=== PATIENT | female | born 1955 | race Caucasian/White ===

== ENCOUNTER 2017-07-12 05:20 | Day surgery (SDC) | payer BC ==
[2017-07-11 12:39] VITALS: BMI 41.5
[2017-07-12] MEDS ORDERED: MIDAZOLAM HCL 2 MG/2 ML SINGLE DOSE VIAL ONE (12:24)
[2017-07-12] MEDS ORDERED: PROPOFOL 20 ML ONE (12:24)
[2017-07-12] MEDS ORDERED: LIDOCAINE HCL/PF 2% SDV 5ML VIAL ONE (12:24)
[2017-07-12] MEDS ORDERED: ceFAZolin SODIUM 1 GM VIAL IVPB ONE (12:44)
[2017-07-12] MEDS ORDERED: ceFAZolin SODIUM 1 GM VIAL ONE (12:55)
[2017-07-12] MEDS ORDERED: IBUPROFEN 800 MG/8 ML IJ IVPB PRN (13:20)
[2017-07-12] MEDS ORDERED: ONDANSETRON 4 MG/2 ML VIAL IVPUSH PRN (13:20)
[2017-07-12] MEDS ORDERED: oxyCODONE HCL 5 MG TABLET PO PRN (13:20)
[2017-07-12] MEDS ORDERED: ACETAMINOPHEN 1000 MG/100 ML VIAL (NON FORMULARY) IVPB ONE (13:25)
[2017-07-12] MEDS ORDERED: ACETAMINOPHEN 325 MG TABLET (FP) PO PRN (13:27)
[2017-07-12] MEDS ORDERED: LACTATED RINGERS SOLUTION 1,000 ML IV SCH (13:30)
[2017-07-12] MEDS ORDERED: IBUPROFEN 800 MG/8 ML IJ IVPB ONE ×2 (13:32→13:40)
[2017-07-12] MEDS ORDERED: ACETAMINOPHEN INJECTION 100 ML IVPB ONE (13:33)
[2017-07-12 14:54] VITALS: TEMP 97.6
[2017-07-12 16:40] VITALS: BP 103/67; PULSE 68
--- NOTE | 2017-07-13 12:10 | OP ---
DATE OF OPERATION: 07/12/2017 PREOPERATIVE DIAGNOSIS: Endometrial lesion. POSTOPERATIVE DIAGNOSIS: Endometrial lesion and polyp. SURGEON: Spring Barry MD ANESTHESIA: General by Lashaun Villatoro MD. FINDING UNDER ANESTHESIA: Vagina clean. Cervix closed. Corpus top normal. Fibroid. Adnexa negative. DESCRIPTION OF PROCEDURE: During the procedure, weighted speculum was applied in the vagina. Cervix grasped with tenaculum. Cervical canal was dilated up to number 31 Hegar, and uterine cavity was 9 cm. At this time, hysteroscopy was done with the help of saline media. Entire endometrium and the cervical area were investigated. There were polyps. After hysteroscopy finished, first endocervical was done, and then, with the help of the polyp forceps, the polyp was removed. Endometrial curetting was done. A moderate amount of tissue was removed. Estimated blood loss was 15 mL, and the patient tolerated the procedure, went to the recovery room in good condition. Ashley [id number]
--- NOTE | 2017-07-13 17:03 | PATH ---
Surgical Pathology Report Patient Name: YOVANY REY [facility]. Rec. #: [id number] /Age/Gender: 1955 (Age: 62) / F Account: [id number] Location: [facility] SUR[facility]ICAL Taken: 07/12/2017 Received: 07/12/2017 Reported: 07/13/2017 Physicians: Spring Barry M.D. Specimen(s) Received A: ENDOCERVICAL CURETTINGS B: ENDOMETRIAL CURETTINGS Clinical History Endometrial hyperplasia Final Diagnosis A. ENDOCERVICAL CURETTINGS, DILATATION AND CURETTAGE: SCANT BENIGN FRAGMENTS OF CERVICAL TISSUE IN A BACKGROUND OF MUCOID DEBRIS. B. ENDOMETRIAL CURETTINGS, DILATATION AND CURETTAGE: ENDOMETRIAL POLYP AND BENIGN CERVICAL TISSUE. Electronically Signed Ynes Moran M.D. Gross Description A. Received in formalin labeled "endocervical curettings," is a 1.5 x 1.3 x 0.3 cm aggregate of blood-tinged mucus, possibly containing soft tissue fragments. The formalin is filtered and the specimen is entirely submitted in one cassette. B. Received in formalin labeled "endometrial curettings," is a 1.7 x 0.8 x 0.3 cm pink-cherry polyp. Also received within the same container is a 1.4 x 1.2 x 0.2 cm aggregate of cherry-red soft tissue fragments. The specimen is entirely submitted in one cassette. /07/12/201707/12/2017
== END 2017-07-12 16:44 | disposition home or self-care (01) ==
LOC: JASU-SURG 05:20
PROVIDERS: ATTEND Obstetrics & Gynecology
PROC: 0UB98ZX Excision of Uterus, Via Natural or Artificial Opening Endoscopic, Diagnostic (ICD-10-PCS; principal; 2017-07-12 12:00)
PROC: 0UDB7ZX Extraction of Endometrium, Via Natural or Artificial Opening, Diagnostic (ICD-10-PCS; 2017-07-12 12:00)
DX: N84.0 Polyp of corpus uteri (principal)
CPT/HCPCS: 86850; 86900; 86901; 88305-TC; 94760

== ENCOUNTER 2018-11-11 19:15 | Emergency (ER) | payer BC ==
[2018-11-11 19:19] VITALS: PULSE 67; BMI 42.9
--- NOTE | 2018-11-11 20:28 | PDOC ---
History of Present Illness <Candy Combs - Last Filed: 11/12/18 02:59> - General History Source: Patient Exam Limitations: No Limitations - History of Present Illness Initial Comments: 11/11/18 20:06 Patient is a 63 year old female with pmhx DM, gastroperesis, hypothyroidism, OA , HLD - hypertriglyceridemia, diverticulosis, cholecystectomy c/o abdominal pain in the mid section 2 days. Pain is constant 8/10 which is worse with eating 9/10, sharp, crampy associated with nausea no vomiting. Last BM is 2 days. Patient had the similar symptoms in August 2018 and was prescribed chloradiaazepoxide/clinidium and bentyl, which was prescribed for gastroparesis. States that when she took the pills in August she had relief of symptoms but for the past 2 days has had no relief. Patient has been residing in [place] for the past year and just return to the [facility] 1 week ago. PMD: Dr. Lyon PMHX: as above PSOCHX: neg etoh, drug, cig ALL: cipro GENERAL/CONSTITUTIONAL: No fever or chills. No weakness. No weight change. HEAD, EYES, EARS, NOSE AND THROAT: No change in vision. No ear pain or discharge. No sore throat. CARDIOVASCULAR: No chest pain or shortness of breath. RESPIRATORY: No cough, wheezing, or hemoptysis. GASTROINTESTINAL: (+) nausea, (-) vomiting, diarrhea or constipation. No rectal bleeding. GENITOURINARY: No dysuria, frequency, or change in urination. MUSCULOSKELETAL: No joint or muscle swelling or pain. No neck or back pain. SKIN AND BREASTS: No rash or easy bruising. NEUROLOGIC: No headache, vertigo, loss of consciousness, or loss of sensation. PSYCHIATRIC: No depression or anxiety. ENDOCRINE: No increased thirst. No abnormal weight change. HEMATOLOGIC/LYMPHATIC: No anemia, easy bleeding, or history of blood clots. ALLERGIC/IMMUNOLOGIC: No hives or skin allergy. No latex allergy. GENERAL: The patient is awake, alert, and fully oriented, in moderate distress. HEAD: Normal with no signs of trauma. EYES: Pupils equal, round and reactive to light, extraocular movements intact, sclera anicteric, conjunctiva clear. ENT: Ears normal, nares patent, oropharynx clear without exudates. Moist mucous membranes. NECK: Normal range of motion, supple without lymphadenopathy, JVD, or masses. LUNGS: Breath sounds equal, clear to auscultation bilaterally. No wheezes, and no crackles. HEART: Regular rate and rhythm, normal S1 and S2 without murmur, rub. ABDOMEN: Soft, (+) tenderness to the right upper to mildline, normoactive bowel sounds. No guarding, no rebound. No masses. EXTREMITIES: Normal range of motion, no edema. No clubbing or cyanosis. No cords, erythema, or tenderness. NEUROLOGICAL: Cranial nerves II through XII grossly intact. Normal speech, normal gait. PSYCH: Normal mood, normal affect. SKIN: Warm, Dry, normal turgor, no rashes or lesions noted. <Nicolasa Rosales - Last Filed: 11/12/18 03:09> - General Chief Complaint: Pain Stated Complaint: ABD PAIN Past History <Candy Combs - Last Filed: 11/12/18 02:59> - Past Medical History Anemia: No Asthma: No Cancer: No Cardiac Disorders: No CVA: No COPD: No CHF: No Diabetes: Yes GI Disorders: Yes (Gastroparesis) Disorders: No HTN: Yes Hypercholesterolemia: Yes Liver Disease: No Seizures: No Thyroid Disease: Yes (Hypothyroid) Other medical history: diverticuitis - Surgical History Abdominal Surgery: Yes (herniarepair agter gb sx) Appendectomy: No Cardiac Surgery: No Cholecystectomy: Yes Lung Surgery: No Neurologic Surgery: No Orthopedic Surgery: No (lt knee arthroscopy) - Immunization History Immunization Up to Date: Yes - Suicide/Smoking/Psychosocial Hx Smoking Status: No Smoking History: Former smoker Have you smoked in the past 12 months: No Number of Cigarettes Smoked Daily: 20 If you are a former smoker, when did you quit?: many years ago Information on smoking cessation initiated: No Hx Alcohol Use: No Drug/Substance Use Hx: No Hx Substance Use Treatment: No <Nicolasa Rosales - Last Filed: 11/12/18 03:09> - Past Medical History Allergies/Adverse Reactions: Allergies Allergy/AdvReac Type Severity Reaction Status Date / Time ciprofloxacin HCl Allergy Severe Verified 11/11/18 19:17 [From Cipro] Home Medications: Ambulatory Orders Aspirin [ASA -] 81 mg PO DAILY 02/09/16 Biotin 1 mg PO DAILY 02/09/16 Cholecalciferol (Vitamin D3) [Vitamin D3] 50,000 unit PO WEEKLY 02/09/16 Folic Acid 1 mg PO DAILY 02/09/16 Levothyroxine [Synthroid -] 50 mcg PO DAILY 02/09/16 Paroxetine HCl 10 mg PO BID 02/09/16 Insulin (Novolog 70/30) [Novolog Mix 70/30 Vial -] 25 units SQ DAILY@0700 vial 02/10/16 Losartan Potassium [Cozaar -] 50 mg PO DAILY #30 tablet 02/10/16 Insulin Degludec [Tresiba Flextouch U-100] 30 units SCJ HS 07/11/17 *Physical Exam - Vital Signs Last Vital Signs Temp Pulse Resp BP Pulse Ox 98.1 F 67 18 120/59 L 97 11/11/18 19:18 11/11/18 19:18 11/11/18 19:18 11/11/18 19:18 11/11/18 19:18 <Candy Combs - Last Filed: 11/12/18 02:59> - Vital Signs Last Vital Signs Temp Pulse Resp BP Pulse Ox 98.1 F 67 18 120/59 L 97 11/11/18 19:18 11/11/18 19:18 11/11/18 19:18 11/11/18 19:18 11/11/18 19:18 <Nicolasa Rosales - Last Filed: 11/12/18 03:09> ED Treatment Course - LABORATORY CBC & Chemistry Diagram: 11/11/18 20:45 11/11/18 20:45 - ADDITIONAL ORDERS Additional order review: Laboratory Results 11/11/18 11/11/18 11/11/18 22:17 20:45 20:38 Sodium 140 Potassium 4.3 Chloride 104 Carbon Dioxide 29 Anion Gap 7 L BUN 15 Creatinine 0.7 Creat Clearance w eGFR 84.51 POC Glucometer 81 57 Random Glucose 62 L Calcium 9.6 Total Bilirubin 0.3 AST 21 ALT 21 Alkaline Phosphatase 99 Creatine Kinase 214 H Creatine Kinase Index 1.5 CK-MB (CK-2) 3.4 Troponin I < 0.02 Total Protein 7.2 Albumin 3.6 Total Amylase 35 Lipase 79 11/11/18 11/11/18 11/11/18 22:17 20:45 20:38 RBC 5.08 MCV 84.4 MCHC 32.7 RDW 15.9 H MPV 8.5 Neutrophils % 51.1 D Lymphocytes % 37.7 D Monocytes % 5.8 D Eosinophils % 4.4 D Basophils % 1.0 POC Glucometer 81 57 - Medications Given in the ED: ED Medications Discontinued Medications Generic Name Dose Route Start Last Admin Trade Name Delia PRN Reason Stop Dose Admin Morphine Sulfate 2 mg 11/11/18 20:31 11/11/18 21:37 Morphine Injection - IVPUSH 11/11/18 20:32 2 mg ONCE ONE Administration Ondansetron HCl 4 mg 11/11/18 20:31 11/11/18 21:39 Zofran Injection IVPUSH 11/11/18 20:32 4 mg ONCE ONE Administration Sodium Chloride 1,000 ml 11/11/18 20:31 11/11/18 23:20 Normal Saline - IV 11/11/18 20:32 Not Given ONCE ONE <Candy Combs - Last Filed: 11/12/18 02:59> - LABORATORY CBC & Chemistry Diagram: 11/11/18 20:45 11/11/18 20:45 <Nicolasa Rosales - Last Filed: 11/12/18 03:09> Medical Decision Making - Medical Decision Making 11/12/18 01:48 Patient Name: YOVANY REY THIS IS A PRELIMINARY REPORT FROM [facility] DATE OF SERVICE: 2018-11-12 00:04:22 IMAGES: 525 EXAM: ABDOMEN \T\ PELVIS CT WITH CONTR HISTORY: Right sided abdominal pain and constipation. COMPARISON: None. FINDINGS: Lung bases are clear. The visualized cardiac chambers are normal size and configuration. Status post cholecystectomy without biliary duct dilation. 11 mm left adrenal nodule is nonspecific but possibly an adenoma. Normal liver, pancreas, spleen, right adrenal gland and kidneys. The stomach and abdominal small and large bowel are normal. There is no aortic aneurysm. There is no significant retroperitoneal lymphadenopathy. Diastases recti is noted. The pelvic small and large bowel are notable for mild sigmoid diverticulosis calcified subcutaneous gluteal injection granulomas are noted.. The appendix is normal . The uterus and adnexal structures are normal. Urinary bladder is unremarkable. There is no pelvic free fluid. No discrete pelvic lymphadenopathy is identified. IMPRESSION: No evidence acute pathology. Small nonspecific left adrenal nodule, possibly an adenoma. Mild sigmoid diverticulosis. <Candy Combs - Last Filed: 11/12/18 02:59> - Medical Decision Making 11/11/18 20:06 Patient is a 63 year old female with pmhx DM, gastroperesis, hypothyroidism, OA , HLD - hypertriglyceridemia, diverticulosis, cholecystectomy c/o abdominal pain in the mid section 2 days. Pain is constant 8/10 which is worse with eating 9/10, sharp, crampy associated with nausea no vomiting. Last BM is 2 days. Patient had the similar symptoms in August 2018 and was prescribed chloradiaazepoxide/clinidium and bentyl, which was prescribed for gastroparesis. States that when she took the pills in August she had relief of symptoms but for the past 2 days has had no relief. Patient has been residing in [place] for the past year and just return to the [facility] 1 week ago. DDx: gastroperesis. ischemia, diverticulitis, appendicitis, gastritis, UTI will get lab incl UA Pain meds IVF Patient after assessment c/o feeling that the bs is low FS done is 50, juice given repeat after 1 hours 84 NS IVF held. labs reviewed no acute finding, urine pending ct with no acute finding Will encourage patient to take the bentyl. 11/12/18 02:11 Patient is currently pain-free 11/12/18 03:07 Urine is negative Patient is tolerating by mouth currently pain-free Discharge I discussed the physical exam findings, ancillary test results and final diagnoses with the patient. I answered all of the patient's questions. The patient was satisfied with the care received and felt comfortable with the discharge plan and treatment plan. The Patient agrees to follow up with the primary care physician within 24-72 hours. <Nicolasa Rosales - Last Filed: 11/12/18 03:09> *DC/Admit/Observation/Transfer <Candy Combs - Last Filed: 11/12/18 02:59> <Nicolasa Rosales - Last Filed: 11/12/18 03:09> Diagnosis at time of Disposition: Glycosuria Abdominal pain Qualifiers: Abdominal location: right lower quadrant Qualified Code(s): R10.31 - Right lower quadrant pain - Discharge Dispostion Disposition: HOME Condition at time of disposition: Stable - Patient Instructions Printed Discharge Instructions: Urine Glucose, DI for Abdominal Pain-Adult Additional Instructions: Your Discharge Instructions: You must call primary care physician within 24 hours to arrange follow-up. Return to the Emergency Department with any new, persistent or worsening symptoms, for fever, chills, SOB, dizziness or any other concerning changes that may occur. Continue the Bentyl until seen by PMD.
[2018-11-11] MEDS ORDERED: SODIUM CHLORIDE 0.9% 500 ML INFUS.BAG IV ONE (20:31)
[2018-11-11] MEDS ORDERED: ONDANSETRON 4 MG/2 ML VIAL IVPUSH ONE (20:31)
[2018-11-11] MEDS ORDERED: morphine CARPU-JECT 2 MG/1 ML DISP.SYRIN IVPUSH ONE (20:31)
[2018-11-11 20:56] LABS: EOS % 4.4 % (0-4.5); HEMATOCRIT 42.9 % (32.4-45.2); LYMPH % 37.7 % (8-40); MCH 27.6 pg (25.7-33.7); MCHC 32.7 g/dl (32.0-36.0); MEAN CELL VOLUME 84.4 fl (80-96); MEAN PLT VOLUME 8.5 fl (7.5-11.1); MONO % 5.8 % (3.8-10.2); NEUT % 51.1 % (42.8-82.8); PLATELET COUNT 218 K/MM3 (134-434); RBC 5.08 M/mm3 (3.60-5.2); RDW 15.9 % (11.6-15.6); WHITE BLOOD COUNT 11.5 K/mm3 (4.0-10.0)
[2018-11-11] MEDS ORDERED: morphine SULFATE 4 MG/ML VIAL ONE (21:25)
[2018-11-11] MEDS ORDERED: ONDANSETRON 4 MG/2 ML VIAL ONE (21:25)
[2018-11-11 21:27] LABS: ALBUMIN 3.6 g/dl (3.4-5.0); ALK PHOS 99 U/L (45-117); AMYLASE 35 U/L (25-115); ANION GAP 7 MMOL/L (8-16); BILIRUBIN,TOTAL 0.3 mg/dL (0.2-1); BLOOD UREA NITROGEN 15 mg/dL (7-18); CALCIUM 9.6 mg/dL (8.5-10.1); CHLORIDE 104 mmol/L (98-107); CO2 29 mmol/L (21-32); CREATININE 0.7 mg/dL (0.55-1.3); GLUCOSE,RANDOM 62 mg/dL (74-106); LIPASE 79 U/L (73-393); POTASSIUM 4.3 mmol/L (3.5-5.1); SGOT/AST 21 U/L (15-37); SGPT/ALT 21 U/L (13-61); SODIUM 140 mmol/L (136-145); TOT PROT 7.2 g/dl (6.4-8.2)
[2018-11-12] MEDS ORDERED: DEXTROSE 5%-0.45% SALINE 1,000 ML IV SCH (02:00)
[2018-11-12 02:38] LABS: URINE APPEARANCE CLEAR; URINE COLOR YELLOW
[2018-11-12 02:39] LABS: PH,URINE 5.5 (5.0-8.0); URINE BILIRUBIN NEGATIVE (NEGATIVE); URINE KETONE NEGATIVE (NEGATIVE); URINE LEUK ESTERASE 0 (NEGATIVE); URINE NITRITE NEGATIVE (NEGATIVE); URINE PROTEIN 0 (NEGATIVE); URINE UROBILINOGEN 0.2 mg/dL (0.2-1.0)
[2018-11-12 02:43] VITALS: BP 101/46; TEMP 97.4
--- NOTE | 2018-11-12 09:49 | EKG ---
Test Reason : Blood Pressure : / mmHG Vent. Rate : 061 BPM Atrial Rate : 061 BPM P-R Int : 178 ms QRS Dur : 084 ms QT Int : 470 ms P-R-T Axes : 057 009 046 degrees QTc Int : 473 ms NORMAL SINUS RHYTHM POSSIBLE LEFT ATRIAL ENLARGEMENT BORDERLINE ECG WHEN COMPARED WITH ECG OF 27-JUN-2017 09:49, NO SIGNIFICANT CHANGE WAS FOUND Confirmed by MINERVA ALY MD ([id number]) on 11/12/2018 9:49:09 AM Referred By: Confirmed By:MINERVA ALY MD
== END 2018-11-12 03:22 | disposition home or self-care (01) ==
LOC: JER 19:15
PROC: 3E033NZ Introduction of Analgesics, Hypnotics, Sedatives into Peripheral Vein, Percutaneous Approach (ICD-10-PCS; principal; 2018-11-11)
PROC: 3E033GC Introduction of Other Therapeutic Substance into Peripheral Vein, Percutaneous Approach (ICD-10-PCS; 2018-11-11)
DX: R81 Glycosuria (principal); R10.31 Right lower quadrant pain; E11.9 Type 2 diabetes mellitus without complications; K31.84 Gastroparesis; E03.9 Hypothyroidism, unspecified; E78.5 Hyperlipidemia, unspecified; M19.90 Unspecified osteoarthritis, unspecified site; Z79.4 Long term (current) use of insulin
CPT/HCPCS: 36415; 74177-TC; 80053; 81003; 82150; 82550; 82553; 82962; 83690; 84484; 85025; 93005; 93010; 99282-25

== ENCOUNTER 2018-11-30 10:14 | Emergency (ER) | payer BC ==
[2018-11-30 10:24] VITALS: BP 107/50; PULSE 65; TEMP 97.7; BMI 41.1
--- NOTE | 2018-11-30 10:50 | PDOC ---
History of Present Illness - General Chief Complaint: Pain Stated Complaint: ABD.PAIN/ LOWER BACK PAIN Time Seen by Provider: 11/30/18 10:50 History Source: Patient, Spouse Exam Limitations: No Limitations - History of Present Illness Initial Comments: 11/30/18 11:46 Patient is a 63 year old female with history of diabetes mellitus (insulin dependent), diverticulosis, gastritis, gastroparesis, endometriosis, hypothryroidism, osteoarthritis, hyperlipidemia presents with complaint of abdominal pain. Patient endorses chronic pain ongoing for past 4-5 months. Pain is described as dull, pressure like, that lasts approx. 4 hours, before spontaneously remitting. Pain is worsened in the evening when lying down flat on bed, ocassionally improved with food. Patient endorses diet of chicken soup, fruits, and oatmeal. She endorses nausea, however denies vomiting. Last bowel movement was yesterday; firm, without melena, or hematochezia. She denies sick contacts. Denies subjective fevers, chills, shortness of breath, cough, chest pain, palpitations. Patient has had numerous CT scans of her abdomen (most recent 11/12) which showed mild sigmoid diverticulosis. Colonoscopy: 2017 ( [facility]) revealed left sided diverticulosis and internal hemorrhoids. 1.2 cm ascending colon polyp noted. Endoscopy: 2018 revealed acute, mild gastritis without bleeding. Negative for H. pylori, or metaplasia. PMH: diabetes mellitus, diverticulosis, gastritis, gastroparesis, endometriosis , hypothryroidism, osteoarthritis, hyperlipidemia PSH: cholecystectomy, left knee repair Family history Mother: history of colon cancer Father Social: Patient lives with her . Former smoker (smoked 1 pack per day for 15 years; quit smoking 15 years ago). Denies alcohol use. Denies illicit drug use. 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 Past History - Travel Traveled outside of the country in the last 30 days: No Close contact w/someone who was outside of country & ill: No - Past Medical History Allergies/Adverse Reactions: Allergies Allergy/AdvReac Type Severity Reaction Status Date / Time ciprofloxacin HCl Allergy Severe [facility]18 10:24 [facility] Home Medications: Ambulatory Orders Aspirin [ASA -] 81 mg PO DAILY 02/09/16 Biotin 1 mg PO DAILY 02/09/16 Folic Acid 1 mg PO DAILY 02/09/16 Levothyroxine [Synthroid -] 50 mcg PO DAILY 02/09/16 Dicyclomine HCl [Bentyl -] 20 mg PO Q6H PRN 11/30/18 Empagliflozin [Jardiance] 10 mg PO DAILY 11/30/18 Famotidine [Pepcid] 40 mg PO DAILY 11/30/18 Fluoxetine HCl [Prozac -] 20 mg PO DAILY 11/30/18 Insulin Lispro Protamin/Lispro [Humalog Mix 50-50 Kwikpen] 35 unit SQ ASDIR 05/11 Linaclotide [Linzess] 145 mcg PO DAILY 11/30/18 Losartan Potassium [Cozaar -] 25 mg PO DAILY 11/30/18 Melatonin/Tryptophan [Restone Capsule] 1 each PO DAILY 11/30/18 Anemia: No Asthma: No Cancer: No Cardiac Disorders: No CVA: No COPD: No CHF: No Diabetes: Yes GI Disorders: Yes (Gastroparesis, gastritis, diverticulosis) Disorders: Yes (endometriosis) HTN: Yes Hypercholesterolemia: Yes Liver Disease: No Seizures: No Thyroid Disease: Yes (Hypothyroid) - Surgical History Abdominal Surgery: Yes (herniarepair agter gb sx) Appendectomy: No Cardiac Surgery: No Cholecystectomy: Yes Lung Surgery: No Neurologic Surgery: No Orthopedic Surgery: No (lt knee arthroscopy) - Immunization History Immunization Up to Date: Yes - Suicide/Smoking/Psychosocial Hx Smoking Status: No Smoking History: Never smoked Have you smoked in the past 12 months: No Number of Cigarettes Smoked Daily: 20 If you are a former smoker, when did you quit?: many years ago Information on smoking cessation initiated: No Hx Alcohol Use: No Drug/Substance Use Hx: No Hx Substance Use Treatment: No Review of Systems - Review of Systems Able to Perform ROS?: Yes Constitutional: No: Chills, Diaphoresis, Fever, Malaise, Night Sweats, Unintentional Wgt. Loss HEENTM: No: Blurred Vision, Nose Congestion, Throat Pain, Throat Swelling, Difficulty Swallowing Respiratory: No: Cough, Orthopnea, Shortness of Breath, Stridor, Wheezing, Hemoptysis Cardiac (ROS): No: Chest Pain, Irregular Heart Rate, Lightheadedness, Palpitations, Syncope ABD/GI: Yes: Constipated, Nausea. No: Blood Streaked Bowels, Diarrhea, Rectal Bleeding, Vomiting, Tarry Stools : No: Burning, Dysuria, Discharge, Hematuria, Urgency Neurological: No: Headache, Numbness, Paresthesia, Weakness *Physical Exam - Vital Signs Last Vital Signs Temp Pulse Resp BP Pulse Ox 97.7 F 65 18 107/50 L 96 11/30/18 10:21 11/30/18 10:21 11/30/18 10:21 11/30/18 10:21 11/30/18 10:21 - Physical Exam General Appearance: Yes: Appropriately Dressed, Obese. No: Apparent Distress HEENT: positive: EOMI, SIMEON. negative: Scleral Icterus (R), Scleral Icterus (L) , Tonsillar Exudate, Rhinorrhea Neck: positive: Trachea midline, Supple. negative: Lymphadenopathy (R), Lymphadenopathy (L) Respiratory/Chest: positive: Lungs Clear, Normal Breath Sounds. negative: Respiratory Distress, Accessory Muscle Use, Crackles, Rales, Rhonchi, Stridor, Wheezing Cardiovascular: positive: Regular Rhythm, Regular Rate, S1, S2. negative: Murmur, Tachycardia Gastrointestinal/Abdominal: positive: Soft, Tenderness (tender to deep palpation left upper and lower quadrants), Other (obese abdomen). negative: Guarding, Rebound Extremity: positive: Normal Range of Motion. negative: Swelling, Calf Tenderness Integumentary: positive: Dry, Warm. 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 Recent EGD reveals gastritis. Colonoscopy last year significant for diverticulosis. CT scan performed two weeks ago shows sigmoid diverticulosis without diverticulitis. Will repeat CBC, CMP 1 liter normal saline hydration Reglan 15mg IV Benadryl 25mg PO Ofirmev 1000mg IV Will reassess 11/30/18 13:24 CBC, CMP, UA unrevealing. No acute change from prior study. Patient endorses significant improvement of her abdominal pain. She is tolerating oral intake. Will discharge home, with outpatient GI ,and OBGYN follow up. *DC/Admit/Observation/Transfer Diagnosis at time of Disposition: Abdominal pain - Discharge Dispostion Disposition: HOME Condition at time of disposition: Improved Decision to Admit order: No - Referrals Referrals: Angel Zuniga MD [Primary Care Provider] - Jose E Erickson DO [Staff Physician] - Isabella Powers MD [Staff Physician] - - Patient Instructions Printed Discharge Instructions: DI for Abdominal Pain-Adult Additional Instructions: You were seen in the hospital for abdominal pain. Your blood work is unchanged from prior visits, and is not concerning for acute infection. Your colonoscopy, endoscopy, and CT scan records were reviewed. You were treated with IV fluids, and medication for your nausea and pain. You are being discharged home. Continue taking your home medications as directed. We recommend that you follow up with your primary care physician within one - two days after discharge. 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 Follow up with your OBGYN within one week of discharge. Return to the nearest emergency department if you experience subjective fevers, chills, shortness of breath, chest pain, palpitations, worsening abdominal pain , nausea, vomiting, blood with vomiting, or blood with bowel movements, black tarry bowel movements, fall, any trama, loss of consciousness. - Post Discharge Activity
[2018-11-30] MEDS ORDERED: METOCLOPRAMIDE HCL INJECTION 10 MG/2 ML VIAL IVPUSH ONE (11:45)
[2018-11-30] MEDS ORDERED: ACETAMINOPHEN 1000 MG/100 ML VIAL (NON FORMULARY) IVPB ONE (11:45)
[2018-11-30] MEDS ORDERED: diphenhydrAMINE HCL 25 MG CAPSULE (FP) PO ONE (11:45)
[2018-11-30] MEDS ORDERED: SODIUM CHLORIDE 1,000 ML IV STA (11:45)
[2018-11-30] MEDS ORDERED: ACETAMINOPHEN INJECTION 100 ML IVPB ONE (11:48)
[2018-11-30] MEDS ORDERED: METOCLOPRAMIDE HCL INJECTION 10 MG/2 ML VIAL ONE (11:48)
[2018-11-30 12:20] LABS: URINE APPEARANCE CLEAR; URINE BILIRUBIN NEGATIVE (NEGATIVE); URINE COLOR YELLOW; URINE GLUCOSE (UA) 3+ (NEGATIVE); URINE KETONE NEGATIVE (NEGATIVE); URINE LEUK ESTERASE NEGATIVE (NEGATIVE); URINE NITRITE NEGATIVE (NEGATIVE); URINE PROTEIN NEGATIVE (NEGATIVE); URINE UROBILINOGEN 0.2 mg/dL (0.2-1.0)
[2018-11-30 12:34] LABS: HEMATOCRIT 45.2 % (32.4-45.2); HEMOGLOBIN 14.6 GM/dL (10.7-15.3); MCH 27.3 pg (25.7-33.7); MCHC 32.3 g/dl (32.0-36.0); MEAN CELL VOLUME 84.6 fl (80-96); MEAN PLT VOLUME 8.7 fl (7.5-11.1); PLATELET COUNT 219 K/MM3 (134-434); RBC 5.34 M/mm3 (3.60-5.2); WHITE BLOOD COUNT 8.1 K/mm3 (4.0-10.0)
--- NOTE | 2018-11-30 12:46 | PDOC ---
Documentation entered by Roberto Galloway SCRIBE, acting as scribe for Armen Levy MD. Armen Levy MD: This documentation has been prepared by the Laverne lindo Nirvannie, SCRIBE, under my direction and personally reviewed by me in its entirety. I confirm that the documentation accurately reflects all work, treatment, procedures, and medical decision making performed by me. Attending Attestation - Resident Resident Name: Andrés Doss - ED Attending Attestation I have performed the following: I have examined & evaluated the patient, The case was reviewed & discussed with the resident, I agree w/resident's findings & plan - HPI HPI: 11/30/18 11:43 CC: Abdominal pain. HPI: The patient is a 63 year old female, with a significant past medical history of DM, gastroparesis, hypothyroidism, OA, HLD, diverticulosis, and endometriosis, who presents to the emergency department with, dull, pressure-like, constant, 7/ 10 LLQ abdominal pain with associated nausea worsened while lying down. Patient notes her symptoms are similar to her chronic abdominal pain and notes an appointment with GI 12/2018. She denies recent fevers, chills, headache or dizziness. She denies recent vomit , diarrhea or constipation. She denies recent dysuria, frequency, urgency or hematuria. She denies recent chest pain or shortness of breath. Allergies: Ciprofloxacin. Past surgical history: None reported. Social history: Nonsmoker. Denies EtOH use and recreational drug use. Primary Care Physician: Dr. Zuniga - Physicial Exam PE: 11/30/18 12:21 Exam: Vitals: Triage Vital signs reviewed General Appearance: no acute distress, well nourished well developed, Head: Atraumatic, normocephalic Neck: Supple. Chest Wall: Nontender Abdomen: +Mild left sided abdominal discomfort. No rebound, no guarding. Soft, nondistended. Rectal: Exam deferred Extremities: Full range of motion to all extremities, no cyanosis, clubbing, or edema Skin: Warm and dry, no rashes or lesions, no petechiae Neuro: AOX3; Cranial Nerves 2-12 grossly intact, gait normal Psych: normal mood, normal affect - Medical Decision Making 11/30/18 11:44 63 year old female, with a significant past medical history of DM, gastroparesis , hypothyroidism, OA, HLD, diverticulosis, and endometriosis, who presents to the emergency department with left sided abdominal pain. 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 Findings, the need for follow-up and strict return instructions discussed with patient.
[2018-11-30 13:15] LABS: ALBUMIN 3.4 g/dl (3.4-5.0); BILIRUBIN,TOTAL 0.4 mg/dL (0.2-1); CALCIUM 9.5 mg/dL (8.5-10.1); CREATININE 0.6 mg/dL (0.55-1.3); POTASSIUM 4.2 mmol/L (3.5-5.1); TOT PROT 7.1 g/dl (6.4-8.2)
== END 2018-11-30 13:41 | disposition home or self-care (01) ==
LOC: JER 10:14
PROC: 3E033NZ Introduction of Analgesics, Hypnotics, Sedatives into Peripheral Vein, Percutaneous Approach (ICD-10-PCS; principal; 2018-11-30)
PROC: 3E033GC Introduction of Other Therapeutic Substance into Peripheral Vein, Percutaneous Approach (ICD-10-PCS; 2018-11-30)
DX: R10.84 Generalized abdominal pain (principal); I10 Essential (primary) hypertension; E78.00 Pure hypercholesterolemia, unspecified; E03.9 Hypothyroidism, unspecified; E11.9 Type 2 diabetes mellitus without complications; Z79.4 Long term (current) use of insulin; Z87.19 Personal history of other diseases of the digestive system
CPT/HCPCS: 36415; 80053; 81003; 85027; 87086; 99282-25; J0131; J7030

== ENCOUNTER 2019-03-14 23:16 | Observation (INO) | payer BC ==
[2019-03-14 23:38] VITALS: BMI 41.1
--- NOTE | 2019-03-14 23:56 | PDOC ---
History of Present Illness - General Chief Complaint: Chest Pain Stated Complaint: CHEST PAIN Time Seen by Provider: 03/14/19 23:56 History Source: Patient, Family (adult nephew at bedside) Exam Limitations: No Limitations - History of Present Illness Initial Comments: 03/15/19 01:04 63F w/ pmh of HTN, HLD, hypothyroidism, asthma, NIDDM, gastroparesis, gastritis , endometriosis, diverticulosis presents with complaint of sudden onset midsternal chest pain(8/10 severity) w/a SOB, chest tightness, posterior FAITH. 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 Pain improved somewhat in ER w/o intervention. Last week, received amoxicillin for sore throat. Denies h/o of [place], CVA. 3mo prior and patient endorses intermittent episodes of anxiety and panic attacks since then. Has loss ~20lbs since her . Takes inhaler as needed, ~x2/ weekly. Associated Symptoms: reports: chest pain, shortness of breath. denies: diaphoresis, loss of appetite, syncope Past History - Travel Traveled outside of the country in the last 30 days: No Close contact w/someone who was outside of country & ill: No - Past Medical History Allergies/Adverse Reactions: Allergies Allergy/AdvReac Type Severity Reaction Status Date / Time ciprofloxacin HCl Allergy Severe Verified 03/14/19 23:32 [From Cipro] Home Medications: Ambulatory Orders Aspirin [ASA -] 81 mg PO DAILY 02/09/16 Folic Acid 1 mg PO DAILY 02/09/16 Levothyroxine [Synthroid -] 50 mcg PO DAILY 02/09/16 Dicyclomine HCl [Bentyl -] 20 mg PO Q6H PRN 11/30/18 Empagliflozin [Jardiance] 10 mg PO DAILY 11/30/18 Famotidine [Pepcid] 40 mg PO DAILY 11/30/18 Insulin Lispro Protamin/Lispro [Humalog Mix 50-50 Kwikpen] 35 unit SQ ASDIR 05/11 Linaclotide [Linzess] 145 mcg PO DAILY 11/30/18 Losartan Potassium [Cozaar -] 25 mg PO DAILY 11/30/18 Dicyclomine HCl [Bentyl -] 20 mg PO ONCE 03/15/19 Anemia: No Asthma: No Cancer: No Cardiac Disorders: No CVA: No COPD: No CHF: No Diabetes: Yes GI Disorders: Yes (Gastroparesis, gastritis, diverticulosis) Disorders: Yes (endometriosis) HTN: Yes Hypercholesterolemia: Yes Liver Disease: No Seizures: No Thyroid Disease: Yes (Hypothyroid) - Surgical History Abdominal Surgery: Yes (incisional hernia repair, lap bernice) Appendectomy: No Cardiac Surgery: No Cholecystectomy: Yes Lung Surgery: No Neurologic Surgery: No Orthopedic Surgery: No (lt knee arthroscopy) - Family Disease History Family Disease History: Diabetes: Mother (hypothyroidism), Sister, CA: Father ( lung cancer), Other: Mother - Immunization History Immunization Up to Date: Yes - Suicide/Smoking/Psychosocial Hx Smoking Status: No Smoking History: Former smoker (last smoked 15ys prior) Have you smoked in the past 12 months: No Number of Cigarettes Smoked Daily: 20 If you are a former smoker, when did you quit?: many years ago Information on smoking cessation initiated: No Hx Alcohol Use: No Drug/Substance Use Hx: No Hx Substance Use Treatment: No Review of Systems - Review of Systems Able to Perform ROS?: Yes Is the patient limited Ukrainian proficient: Yes Constitutional: Yes: Unexplained wgt Loss. No: Chills, Fever, Malaise HEENTM: Yes: Difficulty Swallowing. No: Recent change in vision, Double Vision Respiratory: No: Cough, SOB at Rest, Wheezing Cardiac (ROS): Yes: Chest Pain, Palpitations, Chest Tightness. No: Irregular Heart Rate ABD/GI: Yes: Constipated. No: Diarrhea, Nausea, Vomiting : No: Burning, Dysuria Musculoskeletal: No: Back Pain Neurological: Yes: Headache (posterior). No: Seizure, Tremors *Physical Exam - Vital Signs Last Vital Signs Temp Pulse Resp BP Pulse Ox 98.1 F 73 22 H 116/62 100 03/14/19 23:29 03/14/19 23:29 03/14/19 23:29 03/14/19 23:29 03/14/19 23:29 - Physical Exam General Appearance: Yes: Nourished, Obese. No: Apparent Distress HEENT: negative: Pale Conjunctivae, Scleral Icterus (R), Scleral Icterus (L) Neck: negative: Lymphadenopathy (R), Lymphadenopathy (L), Rigidity Respiratory/Chest: positive: Chest Tender (mild TTP of Right parasternal margin) , Wheezing (mild b/l end expiratory wheezes). negative: Lungs Clear, Respiratory Distress, Labored Respiration, Rapid RR Cardiovascular: positive: Regular Rhythm, Regular Rate, S1, S2 Gastrointestinal/Abdominal: positive: Soft, Tenderness (mild epigastric tenderness with deep palpation) Extremity: positive: Normal Inspection. negative: Coldness Integumentary: positive: Dry, Warm Neurologic: positive: Fully Oriented, Alert Heart Score/ECG Review - History History: Moderately suspicious - Electrocardiogram EKG: Normal - Age Age: 45-65 - Risk Factors Risk Factors Heart Score: Yes Hx Hypercholesterolemia, Yes Hx Hypertension, Yes Hx Diabetes Based on the list above the patient has:: >/=3 risk factors or Hx atherosclerotic disease - Troponin Troponin: </= normal limit - Score Heart Score - Total: 4 - ECG Intrepretation Rhythm: Regular Rhythm - [place]: Normal ED Treatment Course - LABORATORY CBC & Chemistry Diagram: 03/15/19 01:09 03/15/19 01:09 Medical Decision Making - Medical Decision Making 03/15/19 01:56 - fu CBC, CMP, tropnonin, CXR - EKG: no ST changes 03/15/19 02:26 - Glu 184, Troponin <0.02 - decision to admit for Chest Pain and HEART 4 03/15/19 02:58 - signed out to ANTONIO Aj *DC/Admit/Observation/Transfer Diagnosis at time of Disposition: Chest pain Qualifiers: Chest pain type: unspecified Qualified Code(s): R07.9 - Chest pain, unspecified - Discharge Dispostion Condition at time of disposition: Stable Decision to Admit order: Yes - Referrals - Patient Instructions - Post Discharge Activity
[2019-03-15 01:45] LABS: BASO % 0.7 % (0-2.0); EOS % 4.9 % (0-4.5); HEMATOCRIT 41.5 % (32.4-45.2); HEMOGLOBIN 13.5 GM/dL (10.7-15.3); LYMPH % 36.4 % (8-40); MCH 27.5 pg (25.7-33.7); MCHC 32.5 g/dl (32.0-36.0); MEAN CELL VOLUME 84.7 fl (80-96); MEAN PLT VOLUME 8.6 fl (7.5-11.1); MONO % 5.2 % (3.8-10.2); NEUT % 52.8 % (42.8-82.8); PLATELET COUNT 203 K/MM3 (134-434); RBC 4.89 M/mm3 (3.60-5.2); RDW 15.6 % (11.6-15.6); WHITE BLOOD COUNT 10.4 K/mm3 (4.0-10.0)
[2019-03-15 02:07] LABS: ALBUMIN 3.4 g/dl (3.4-5.0); BILIRUBIN,TOTAL 0.3 mg/dL (0.2-1); BLOOD UREA NITROGEN 23.2 mg/dL (7-18); CALCIUM 9.2 mg/dL (8.5-10.1); CREATININE 0.8 mg/dL (0.55-1.3); POTASSIUM 4.4 mmol/L (3.5-5.1)
--- NOTE | 2019-03-15 03:03 | PDOC ---
Documentation entered by Supriya Bynum SCRIBE, acting as scribe for Georgi Petty MD. Georgi Petty MD: This documentation has been prepared by the belgica, Supriya Bynum SCRIBE, under my direction and personally reviewed by me in its entirety. I confirm that the documentation accurately reflects all work, treatment, procedures, and medical decision making performed by me. 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 The patient reports she was laying down when the chest pain presented, that's associated with palpitations, posterior headache, and shortness of breath. Denies pain radiation to the extremities. - Physicial Exam PE: 03/15/19 03:05 Agree with exam as documented by resident - Medical Decision Making 03/15/19 05:55 63F with risk factors c/o central, resting chest pain a/w sob, palpitations f/u labs, cxr, ekg high risk chest pain admit for acs r/o
--- NOTE | 2019-03-15 03:04 | HP ---
Admitting History and Physical - Primary Care Physician PCP: Angel Zuniga - Admission Chief Complaint: Chest Pain, SOB, Abdominal Pain, Constipation History of Present Illness: This is a 63 y/o woman with a PMHx of HTN, HLD, DM, Asthma, Hypothyroidism, Gastroparesis, Diverticulosis. Who presents to the ED with midsternal chest pain /pressure with radiation to lumbar, and SOB that occurred while at rest. Patient reports feeling very anxious and sad since the of her almost 3 months ago. Patient reports having chronic abdominal pain, poor appetite with constipation x 2-3 days. She reports taking Linzess today with little relief. Patient reports her last Colonoscopy was 2-3 yrs ago with polyps. Patient denies fever, chills, cough, dizziness, FAITH, palpitations, vomiting, hematochezia, melena, dysuria History Source: Patient Limitations to Obtaining History: No Limitations - Past Medical History Cardiovascular: Yes: HTN, Hyperlipdemia Gastrointestinal: Yes: Constipation, Diverticulosis, Other (gastroparesis). No : Hiatal Hernia Reproductive: Yes: Postmenopausal Endocrine: Yes: Diabetes Mellitus, Hypothyroidism - Past Surgical History Past Surgical History: Yes: Arthrosocopy (left knee ), Cholecystectomy (> 10 years ago) - Smoking History Smoking history: Former smoker (last smoked 15ys prior) Have you smoked in the past 12 months: No Aproximately how many cigarettes per day: 20 If you are a former smoker, when did you quit?: many years ago - Alcohol/Substance Use Hx Alcohol Use: No History of Substance Use: reports: None - Social History Usual Living Arrangement: Yes: Alone ADL: Independent History of Recent Travel: No Home Medications - Allergies Allergies/Adverse Reactions: Allergies Allergy/AdvReac Type Severity Reaction Status Date / Time ciprofloxacin HCl Allergy Severe Verified 03/14/19 23:32 [From Cipro] - Home Medications Home Medications: Ambulatory Orders Aspirin [ASA -] 81 mg PO DAILY 02/09/16 Folic Acid 1 mg PO DAILY 02/09/16 Levothyroxine [Synthroid -] 50 mcg PO DAILY 02/09/16 Dicyclomine HCl [Bentyl -] 20 mg PO Q6H PRN 11/30/18 Empagliflozin [Jardiance] 10 mg PO DAILY 11/30/18 Famotidine [Pepcid] 40 mg PO DAILY 11/30/18 Insulin Lispro Protamin/Lispro [Humalog Mix 50-50 Kwikpen] 35 unit SQ ASDIR 05/11 Linaclotide [Linzess] 145 mcg PO DAILY 11/30/18 Losartan Potassium [Cozaar -] 25 mg PO DAILY 11/30/18 Dicyclomine HCl [Bentyl -] 20 mg PO ONCE 03/15/19 Family Disease History - Family Disease History Family Disease History: Heart Disease: Father (CAD), Mother (CAD), Brother (CABG ), Sister (CAD) Review of Systems - Review of Systems Constitutional: reports: Loss of Appetite Eyes: reports: No Symptoms HENT: reports: No Symptoms Neck: reports: No Symptoms Cardiovascular: reports: Chest Pain, Shortness of Breath Respiratory: reports: SOB Gastrointestinal: reports: Abdominal Pain, Constipation, Nausea Genitourinary: reports: No Symptoms Breasts: reports: No Symptoms Reported Musculoskeletal: reports: No Symptoms Integumentary: reports: No Symptoms Neurological: reports: No Symptoms Endocrine: reports: No Symptoms Hematology/Lymphatic: reports: No Symptoms Psychiatric: reports: Anxiety, Depression Pain Intensity: 4 Physical Examination Vital Signs: Vital Signs Temperature 98.1 F 03/14/19 23:29 Pulse Rate 75 03/15/19 00:40 Respiratory Rate 15 03/15/19 00:40 Blood Pressure 143/67 03/15/19 00:40 O2 Sat by Pulse Oximetry (%) 100 03/15/19 00:40 Constitutional: Yes: Anxious, Mild Distress, Obese Eyes: Yes: WNL, Conjunctiva Clear, EOM Intact, PERRL HENT: Yes: WNL, Atraumatic, Normocephalic Neck: Yes: WNL, Supple, Trachea Midline Cardiovascular: Yes: WNL, Regular Rate and Rhythm, S1, S2 Respiratory: Yes: WNL, Regular, CTA Bilaterally Gastrointestinal: Yes: Soft, Abdomen, Obese, Hypoactive Bowel Sounds, Tenderness , Tenderness, Epigastrium ...Rectal Exam: Yes: Guaiac Negative, Sphincter Tone Normal, Other (stool felt in vault) Renal/: Yes: WNL Breast(s): Yes: WNL Musculoskeletal: Yes: WNL Extremities: Yes: WNL Edema: No Peripheral Pulses WNL: Yes Neurological: Yes: WNL, Alert, Oriented, Cran Nerves II-XII Intact ...Motor Strength: WNL Psychiatric: Yes: WNL, Alert, Oriented Labs: CBC, BMP 03/15/19 01:09 03/15/19 01:09 Laboratory Results - last 24 hr 03/15/19 03/15/19 03/15/19 01:09 01:09 01:09 WBC 10.4 H RBC 4.89 Hgb 13.5 Hct 41.5 MCV 84.7 MCH 27.5 MCHC 32.5 RDW 15.6 Plt Count 203 MPV 8.6 Absolute Neuts (auto) 5.5 Neutrophils % 52.8 D Lymphocytes % 36.4 D Monocytes % 5.2 Eosinophils % 4.9 H Basophils % 0.7 Nucleated RBC % 0 Sodium 142 Potassium 4.4 Chloride 105 Carbon Dioxide 29 Anion Gap 8 BUN 23.2 H Creatinine 0.8 Est GFR (CKD-EPI)AfAm 90.94 Est GFR (CKD-EPI)NonAf 78.46 Random Glucose 184 H Calcium 9.2 Total Bilirubin 0.3 AST 21 ALT 27 Alkaline Phosphatase 115 Troponin I B-Natriuretic Peptide 29.6 Total Protein 7.0 Albumin 3.4 03/15/19 01:09 WBC RBC Hgb Hct MCV MCH MCHC RDW Plt Count MPV Absolute Neuts (auto) Neutrophils % Lymphocytes % Monocytes % Eosinophils % Basophils % Nucleated RBC % Sodium Potassium Chloride Carbon Dioxide Anion Gap BUN Creatinine Est GFR (CKD-EPI)AfAm Est GFR (CKD-EPI)NonAf Random Glucose Calcium Total Bilirubin AST ALT Alkaline Phosphatase Troponin I < 0.02 B-Natriuretic Peptide Total Protein Albumin Intake & Output 03/12/19 03/13/19 03/14/19 03/15/19 23:59 23:59 23:59 23:59 Weight 108.862 kg Current Medications Generic Name Dose Route Start Last Admin Trade Name Freq PRN Reason Stop Dose Admin Aspirin 81 mg 03/16/19 10:00 Asa - PO DAILY BIENVENIDO Folic Acid 1 mg 03/15/19 10:00 Folic Acid - PO DAILY BIENVENIDO Levothyroxine Sodium 50 mcg 03/15/19 07:00 Synthroid - PO DAILY@0700 BIENVENIDO Losartan Potassium 25 mg 03/15/19 10:00 Cozaar - PO DAILY BIENVENIDO Non-Formulary Medication 40 mg 03/16/19 10:00 Famotidine [Pepcid] PO DAILY BIENVENIDO Ondansetron HCl 4 mg 03/15/19 06:26 Zofran Injection IVPUSH Q6H PRN NAUSEA AND/OR VOMITING Imaging - Results Chest X-ray: Image Reviewed Ultrasound: Pending EKG: Image Reviewed Problem List - Problems (1) Chest pain Assessment/Plan: r/o ACS vs Anxiety HEART Score 4 Continue cardiac monitoring Serial Enzymes neg x1, will trend Appreciate Cardiology consult Echo 2016- LVSF nl, EF 80% Stress Test 2016- mild ischemia Echo in am Stress Test in am Asa ordered now, then continue Chest Xray image reviewed EKG- reviewed Monitor CBC, BMP Code(s): R07.9 - CHEST PAIN, UNSPECIFIED Qualifiers: Chest pain type: unspecified Qualified Code(s): R07.9 - Chest pain, unspecified (2) Abdominal pain Assessment/Plan: r/o Gastritis hx Diverticulosis, Gastroparesis Last admission 10/2018 [facility]- CTAP:Diverticulosis Abdominal US-pending Stool Occult- negative Consider GI consult Monitor CBC, BMP Monitor vitals Code(s): R10.9 - UNSPECIFIED ABDOMINAL PAIN (3) Anxiety Assessment/Plan: Patient reports recent of her (3 months ago) Ativan prn Encouraged patient to join support group in outpatient setting Code(s): F41.9 - ANXIETY DISORDER, UNSPECIFIED (4) HLD (hyperlipidemia) Assessment/Plan: stable Continue home med Code(s): E78.5 - HYPERLIPIDEMIA, UNSPECIFIED (5) HTN (hypertension) Assessment/Plan: stable Monitor BP Continue home med Monitor renal function Code(s): I10 - ESSENTIAL (PRIMARY) HYPERTENSION (6) Diabetes mellitus Assessment/Plan: stable BGMs Continue home med HgbA1c in am Code(s): E11.9 - TYPE 2 DIABETES MELLITUS WITHOUT COMPLICATIONS (7) Hypothyroidism Assessment/Plan: stable Continue home med TSH in am Code(s): E03.9 - HYPOTHYROIDISM, UNSPECIFIED Assessment/Plan This is a 63 y/o woman with a PMHx of HTN, HLD, DM, Asthma, Hypothyroidism, Gastroparesis. Placed in Observation Telemetry for Chest Pain r/o ACS, Intractable Abdominal Pain for further evaluation of their emergent condition. Plan: See Problem List FEN PO fluids as tolerated Replete lytes prn Low Na, Diabetic Diet DVT ppx OOB SCDs Consider Ac if LOS > 48hrs Dispo: Observation Visit type - Emergency Visit Emergency Visit: Yes ED Registration Date: 03/15/19 Care time: The patient presented to the Emergency Department on the above date and was hospitalized for further evaluation of their emergent condition. - New Patient This patient is new to me today: Yes Date on this admission: 03/15/19 - Critical Care Critical Care patient: No
[2019-03-15] MEDS ORDERED: LORazepam 0.5 MG TABLET PO ONE (05:25)
[2019-03-15] MEDS ORDERED: ACETAMINOPHEN 1000 MG/100 ML VIAL (NON FORMULARY) IVPB ONE (05:25)
[2019-03-15] MEDS ORDERED: ASPIRIN 81 MG CHEWABLE TABLETS PO ONE (05:29)
[2019-03-15] MEDS ORDERED: FAMOTIDINE 20 MG/50 ML IVPB 20 MG/50 ML MG IVPB ONE ×2 (05:33→06:08)
[2019-03-15] MEDS ORDERED: ONDANSETRON 4 MG/2 ML VIAL IVPUSH PRN (06:26)
[2019-03-15] MEDS ORDERED: LEVOTHYROXINE NA 50 MCG TABLET (FP) PO SCH (07:00)
[2019-03-15] MEDS ORDERED: LEVOTHYROXINE NA 25 MCG TABLET (FP) ONE (07:15)
[2019-03-15 08:36] LABS: PHOSPHOROUS 3.7 mg/dL (2.5-4.9)
[2019-03-15] MEDS ORDERED: RANITIDINE HCL 150 MG TABLET (FP) PO SCH (10:00)
[2019-03-15] MEDS ORDERED: LOSARTAN POTASSIUM 25 MG TABLET PO SCH (10:00)
[2019-03-15] MEDS ORDERED: FOLIC ACID 1 MG TABLET (FP) PO SCH (10:00)
[2019-03-15 11:06] VITALS: TEMP 98
--- NOTE | 2019-03-15 13:34 | TRE ---
Protocol Name : MAGDALENA Max Work Load (METS*10) : 69 Time In Exercise Phase : 00:05:00 Max. Systolic BP : 156 mmHg Max Diastolic BP : 84 mmHg Max Heart Rate : 137 BPM Max Predicted Heart Rate : 157 BPM Attending Physician : Reason For Termination : Target Heart Rate Achieved Reason for Test : CHEST PAIN Stress Protocol : MAGDALENA Rest HR : 79 BPM PeakEx METs : 6.9 METS Recovery ECG Response (OLD) : Diagnosis : Baseline sinus rhythm. No ischemic ecg changes or arrhythmias with exercise. No chest pain. Normal bp and hr response to exercise. Normal exercise stress ecg. Confirmed by COLIN TRIMBLE MD ([id number]) on 03/15/2019 1:34:20 PM
--- NOTE | 2019-03-15 14:11 | ECHO ---
Name: YOVANY REY Exam:Adult Echocardiogram Study Date: 03/15/2019 09:12 AM Age: 63 yrs Reason For Study: Chest pain Height: 64 in Weight: 240 lb BSA: 2.1 m2 MMode/2D Measurements & Calculations IVSd: 1.00 cm Ao root diam: 2.9 cm LVIDd: 3.5 cm LA dimension: 2.7 cm LVIDs: 2.3 cm LVPWd: 1.1 cm LVPWs: 1.4 cm EDV(Teich): 50.1 ml ESV(Teich): 18.8 ml LVOT diam: 1.7 cm Doppler Measurements & Calculations MV E max laith: 67.4 cm/sec Ao V2 max: 144.2 cm/sec MV A max laith: 67.6 cm/sec Ao max P.4 mmHg MV E/A: 1.00 Ao V2 mean: 97.3 cm/sec MV dec time: 0.27 sec Ao mean P.2 mmHg Ao V2 VTI: 28.3 cm MAGDALENE(I,D): 2.3 cm2 MAGDALENE(V,D): 1.9 cm2 LV V1 max P.9 mmHg SV(LVOT): 64.1 ml LV V1 mean P.1 mmHg LV V1 max: 121.9 cm/sec LV V1 mean: 80.5 cm/sec LV V1 VTI: 28.3 cm PA V2 max: 93.8 cm/sec Med Peak E' Laith: 8.7 cm/sec PA max P.5 mmHg Med E/e': 7.7 Lat Peak E' Laith: 8.4 cm/sec Lat E/e': 8.0 Procedure A complete two-dimensional transthoracic echocardiogram was performed (2D, M-mode, Doppler and color flow Doppler). Left Ventricle The left ventricular size, thickness and function are normal. The left ventricular ejection fraction is normal. Ejection Fraction = 60-65%. The left ventricular wall motion is normal. Right Ventricle The right ventricle is normal in size and function. Atria Normal left and right atrial size and function. Mitral Valve There is no mitral regurgitation noted. Tricuspid Valve There is trace tricuspid regurgitation. There was insufficient TR detected to calculate RV systolic p ressure. Aortic Valve No hemodynamically significant valvular aortic stenosis. No aortic regurgitation is present. Pulmonic Valve There is no pulmonic valvular regurgitation. Great Vessels The aortic root is normal size. Pericardium/Pleura There is no pericardial effusion. Interpretation Summary The left ventricular size, thickness and function are normal The right ventricle is normal in size and function. There is trace tricuspid regurgitation. MD Armen Smith 03/15/2019 02:10 PM
--- NOTE | 2019-03-15 14:14 | CON.CARD ---
Consult Consult Specialty:: Cardiology Referred by:: Dr. Holt Reason for Consultation:: Chest pain - History of Present Illness Chief Complaint: Chest pain History of Present Illness: 63-year-old female with a PMHx of HTN, NIDDM, HLD, asthma, gastritis, gastroparesis, hypothyroidism presented to ED 03/15/19 with mid-sternal chest pain about 60-90 minutes [employer]. The patient reports she was laying down when the chest pain presented, that's associated with palpitations, posterior headache, and shortness of breath. Denies pain radiation to the extremities. No acute ECG changes of ischemia. Troponin negative X2. Echo 03/15/19: Normal LV size, wall motion and systolic function. LVEF = 60-65%. Normal RV. Normal LA and RA in size. No significant valvular abnormalities. ECG stress test 03/15/19: The patient exercised on a treadmill for 5:00 minutes of the Brendan protocol, reached the target HR. Normal ECG stress test. No ECG evidence of stress induced ischemia. Normal chronotropic response to exercise. - History Source History Provided By: Patient, Medical Record - Past Medical History Cardio/Vascular: Yes: HTN, Hyperlipdemia Gastrointestinal: Yes: Constipation, Diverticulosis, Other (gastroparesis). No : Hiatal Hernia Endocrine: Yes: Diabetes Mellitus, Hypothyroidism - Past Surgical History Past Surgical History: Yes: Arthrosocopy (left knee ), Cholecystectomy (> 10 years ago) - Alcohol/Substance Use Hx Alcohol Use: No History of Substance Use: reports: None - Smoking History Smoking history: Former smoker (last smoked 15ys prior) Have you smoked in the past 12 months: No Aproximately how many cigarettes per day: 20 If you are a former smoker, when did you quit?: many years ago - Social History Usual Living Arrangement: With Spouse ADL: Independent History of Recent Travel: No Home Medications - Allergies Allergies/Adverse Reactions: Allergies Allergy/AdvReac Type Severity Reaction Status Date / Time ciprofloxacin HCl Allergy Severe Verified 03/14/19 23:32 [From Cipro] - Home Medications Home Medications: Ambulatory Orders Aspirin [ASA -] 81 mg PO DAILY 02/09/16 Folic Acid 1 mg PO DAILY 02/09/16 Levothyroxine [Synthroid -] 50 mcg PO DAILY 02/09/16 Dicyclomine HCl [Bentyl -] 20 mg PO Q6H PRN 11/30/18 Empagliflozin [Jardiance] 10 mg PO DAILY 11/30/18 Famotidine [Pepcid] 40 mg PO DAILY 11/30/18 Insulin Lispro Protamin/Lispro [Humalog Mix 50-50 Kwikpen] 35 unit SQ ASDIR 05/11 Linaclotide [Linzess] 145 mcg PO DAILY 11/30/18 Losartan Potassium [Cozaar -] 25 mg PO DAILY 11/30/18 Dicyclomine HCl [Bentyl -] 20 mg PO ONCE 03/15/19 Family Disease History - Family Disease History Family Disease History: Heart Disease: Father (CAD), Mother (CAD), Brother (CABG ), Sister (CAD) Review of Systems - Review of Systems Cardiovascular: reports: Chest Pain Vital Signs: Vital Signs Temperature 98.0 F 03/15/19 11:00 Pulse Rate 60 03/15/19 11:00 Respiratory Rate 18 03/15/19 11:00 Blood Pressure 93/51 L 03/15/19 11:00 O2 Sat by Pulse Oximetry (%) 98 03/15/19 11:00 General: Well developed. Obese. No acute distress. Head: Normocephalic. Atraumatic, Eyes: PERRLA, EOMI. Sclerae anicteric. Conjunctivae clear. Neck: Supple. No JVD. No bruits. Heart: Normal S1, S2: Regular rhythm and rate. No murmur. No gallop or rub. Lungs: Symmetrical air entry. Clear to auscultation. No crackles. No wheezing or rhonchi. Abdomen: Soft. Bowel sound positive. Non tender. No masses. Extremities: No edema. No clubbing or cyanosis. PD 2+, equal bilaterally. Neuro: Intact, no focal findings. AAO X3. - Other Data Labs, Other Data: CBC, BMP 03/15/19 01:09 03/15/19 01:09 Troponin, BNP 03/15/19 03/15/19 03/15/19 01:09 01:09 06:58 Troponin I < 0.02 < 0.02 B-Natriuretic Peptide 29.6 Troponin, BNP 03/15/19 03/15/19 03/15/19 01:09 01:09 06:58 Troponin I < 0.02 < 0.02 B-Natriuretic Peptide 29.6 Assessment/Plan 63-year-old female with a PMHx of HTN, NIDDM, HLD, asthma, gastritis, gastroparesis, hypothyroidism presented to ED 03/15/19 with mid-sternal chest pain No acute ECG changes of ischemia. Troponin negative X2. Echo 03/15/19: Normal LV size, wall motion and systolic function. LVEF = 60-65%. Normal RV. Normal LA and RA in size. No significant valvular abnormalities. ECG stress test 03/15/19: The patient exercised on a treadmill for 5:00 minutes of the Brendan protocol, reached the target HR. Normal ECG stress test. No ECG evidence of stress induced ischemia. Normal chronotropic response to exercise. Atypical chest pain without evidence of NE. Normal echocardiogram and normal ECG stress test. The patient can be discharged home directly from ED Out-pt cardiac follow up. Please do not hesitate to call us for reconsult at any time if any further questions or additional issue arises regarding this patient.
--- NOTE | 2019-03-15 16:11 | PN ---
Progress Note, Physician - Current Medication List Current Medications: Active Medications Aspirin (Asa -) 81 mg PO DAILY [facility] Folic Acid (Folic Acid -) 1 mg PO DAILY [facility] Last Admin: 03/15/19 11:05 Dose: 1 mg Levothyroxine Sodium (Synthroid -) 50 mcg PO DAILY@0700 [facility] Last Admin: 03/15/19 07:16 Dose: 50 mcg Losartan Potassium (Cozaar -) 25 mg PO DAILY [facility] Last Admin: 03/15/19 11:05 Dose: Not Given Ondansetron HCl (Zofran Injection) 4 mg IVPUSH Q6H PRN PRN Reason: NAUSEA AND/OR VOMITING Ranitidine HCl (Zantac -) 300 mg PO DAILY [facility] Last Admin: 03/15/19 11:05 Dose: 300 mg - Objective Vital Signs: Vital Signs Temperature 98.0 F 03/15/19 11:00 Pulse Rate 60 03/15/19 11:00 Respiratory Rate 18 03/15/19 11:00 Blood Pressure 93/51 L 03/15/19 11:00 O2 Sat by Pulse Oximetry (%) 98 03/15/19 11:00 Labs: CBC, BMP 03/15/19 01:09 03/15/19 01:09
--- NOTE | 2019-03-15 17:21 | DS ---
Physical Examination Vital Signs: Vital Signs Temperature 98.0 F 03/15/19 15:00 Pulse Rate 60 03/15/19 15:00 Respiratory Rate 18 03/15/19 15:00 Blood Pressure 118/57 L 03/15/19 15:00 O2 Sat by Pulse Oximetry (%) 98 03/15/19 15:00 Constitutional: Yes: No Distress, Calm Eyes: Yes: Conjunctiva Clear HENT: Yes: Atraumatic Neck: Yes: Supple Cardiovascular: Yes: Regular Rate and Rhythm Respiratory: Yes: Regular, CTA Bilaterally Gastrointestinal: Yes: Normal Bowel Sounds, Soft, Abdomen, Obese Musculoskeletal: Yes: WNL Extremities: Yes: WNL Edema: No Neurological: Yes: Alert, Oriented Psychiatric: Yes: Alert, Oriented Labs: CBC, BMP 03/15/19 01:09 03/15/19 01:09 Discharge Summary Reason For Visit: CHEST PAIN Current Active Problems Chest pain (Acute) Diabetes mellitus (Acute) Hypothyroidism (Acute) Hospital Course: Patient is a 63 y/o female with past medical history of HTN, NIDDM, HLD, asthma gastritis, gastroparesis, hypothyroidism. Patient presented to ER with complaints of mid sternal chest pain. She was lying down when chest pain started and associated with palpitations and SOB. Troponin neg x 2. Evaluated by cardiology and cleared for discharge home with outpatient follow up Stress test shows normal exercise stress ecg. Echo shows EF 60-65% On exam denies chest pain or SOB Laboratory Tests 03/15/19 03/15/19 03/15/19 01:09 01:09 01:09 WBC 10.4 H RBC 4.89 Hgb 13.5 Hct 41.5 MCV 84.7 MCH 27.5 MCHC 32.5 RDW 15.6 Plt Count 203 MPV 8.6 Absolute Neuts (auto) 5.5 Neutrophils % 52.8 D Lymphocytes % 36.4 D Monocytes % 5.2 Eosinophils % 4.9 H Basophils % 0.7 Nucleated RBC % 0 Sodium 142 Potassium 4.4 Chloride 105 Carbon Dioxide 29 Anion Gap 8 BUN 23.2 H Creatinine 0.8 Est GFR (CKD-EPI)AfAm 90.94 Est GFR (CKD-EPI)NonAf 78.46 Random Glucose 184 H Calcium 9.2 Phosphorus Magnesium Total Bilirubin 0.3 AST 21 ALT 27 Alkaline Phosphatase 115 Troponin I B-Natriuretic Peptide 29.6 Total Protein 7.0 Albumin 3.4 TSH Stool Occult Blood 03/15/19 03/15/19 03/15/19 01:09 05:40 06:58 WBC RBC Hgb Hct MCV MCH MCHC RDW Plt Count MPV Absolute Neuts (auto) Neutrophils % Lymphocytes % Monocytes % Eosinophils % Basophils % Nucleated RBC % Sodium Potassium Chloride Carbon Dioxide Anion Gap BUN Creatinine Est GFR (CKD-EPI)AfAm Est GFR (CKD-EPI)NonAf Random Glucose Calcium Phosphorus 3.7 Magnesium 2.0 Total Bilirubin AST ALT Alkaline Phosphatase Troponin I < 0.02 < 0.02 B-Natriuretic Peptide Total Protein Albumin TSH 3.36 Stool Occult Blood Negative Home Medication List Medication Instructions Recorded Confirmed Type Aspirin [ASA -] 81 mg PO DAILY 02/09/16 03/15/19 History Folic Acid 1 mg PO DAILY 02/09/16 03/15/19 History Levothyroxine [Synthroid -] 50 mcg PO DAILY 02/09/16 03/15/19 History Dicyclomine HCl [Bentyl -] 20 mg PO Q6H PRN 11/30/18 03/15/19 History Empagliflozin [Jardiance] 10 mg PO DAILY 11/30/18 03/15/19 History Famotidine [Pepcid] 40 mg PO DAILY 11/30/18 03/15/19 History Insulin Lispro Protamin/Lispro 35 unit SQ ASDIR 11/30/18 03/15/19 History [Humalog Mix 50-50 Kwikpen] Linaclotide [Linzess] 145 mcg PO DAILY 11/30/18 03/15/19 History Losartan Potassium [Cozaar -] 25 mg PO DAILY 11/30/18 03/15/19 History Dicyclomine HCl [Bentyl -] 20 mg PO ONCE 03/15/19 03/15/19 History Active Medications Generic Name Dose Route Start Last Admin Trade Name Freq PRN Reason Stop Dose Admin Aspirin 81 mg 03/16/19 10:00 Asa - PO DAILY [facility] Folic Acid 1 mg 03/15/19 10:00 03/15/19 11:05 Folic Acid - PO 1 mg DAILY [facility] Administration Levothyroxine Sodium 50 mcg 03/15/19 07:00 03/15/19 07:16 Synthroid - PO 50 mcg DAILY@0700 [facility] Administration Losartan Potassium 25 mg 03/15/19 10:00 03/15/19 11:05 Cozaar - PO Not Given DAILY [facility] Ondansetron HCl 4 mg 03/15/19 06:26 Zofran Injection IVPUSH Q6H PRN NAUSEA AND/OR VOMITING Ranitidine HCl 300 mg 03/15/19 10:00 03/15/19 11:05 Zantac - PO 300 mg DAILY [facility] Administration Condition: Stable - Instructions Diet, Activity, Other Instructions: follow up with PMD in 1 week Follow up with Behavioral Psychologist Dr Soriano in 1 week continue with current med regimen as prescribed return to ER if develop severe chest pain, respiratory distress, fever, AMS Referrals: Daniel Soriano MD [Staff Physician] - Angel Zuniga MD [Staff Physician] - Disposition: HOME - Home Medications Comprehensive Discharge Medication List: Ambulatory Orders Aspirin [ASA -] 81 mg PO DAILY 02/09/16 Folic Acid 1 mg PO DAILY 02/09/16 Levothyroxine [Synthroid -] 50 mcg PO DAILY 02/09/16 Dicyclomine HCl [Bentyl -] 20 mg PO Q6H PRN 11/30/18 Empagliflozin [Jardiance] 10 mg PO DAILY 11/30/18 Famotidine [Pepcid] 40 mg PO DAILY 11/30/18 Insulin Lispro Protamin/Lispro [Humalog Mix 50-50 Kwikpen] 35 unit SQ ASDIR 05/11 Linaclotide [Linzess] 145 mcg PO DAILY 11/30/18 Losartan Potassium [Cozaar -] 25 mg PO DAILY 11/30/18 Dicyclomine HCl [Bentyl -] 20 mg PO ONCE 03/15/19
[2019-03-15 17:47] VITALS: BP 117/55; PULSE 61
[2019-03-16] MEDS ORDERED: ASPIRIN 81 MG CHEWABLE TABLETS PO SCH (10:00)
--- NOTE | 2019-03-19 09:32 | EKG ---
Test Reason : Blood Pressure : / mmHG Vent. Rate : 079 BPM Atrial Rate : 079 BPM P-R Int : 152 ms QRS Dur : 082 ms QT Int : 408 ms P-R-T Axes : 049 000 040 degrees QTc Int : 467 ms NORMAL SINUS RHYTHM NORMAL ECG WHEN COMPARED WITH ECG OF 12-NOV-2018 00:38, NO SIGNIFICANT CHANGE WAS FOUND Confirmed by Ellis Childers MD ([id number]) on 03/19/2019 9:32:47 AM Referred By: Confirmed By:Ellis Childers MD
== END 2019-03-15 17:45 | disposition home or self-care (01) ==
LOC: JER 23:16 → JERBED 03-15 02:28
PROVIDERS: ADMIT Family Medicine; ATTEND Family Medicine
PROC: 3E033NZ Introduction of Analgesics, Hypnotics, Sedatives into Peripheral Vein, Percutaneous Approach (ICD-10-PCS; principal; 2019-03-15)
DX: R07.89 Other chest pain (principal); F41.9 Anxiety disorder, unspecified; R10.9 Unspecified abdominal pain; I10 Essential (primary) hypertension; E78.5 Hyperlipidemia, unspecified; E03.9 Hypothyroidism, unspecified; E11.9 Type 2 diabetes mellitus without complications; J45.909 Unspecified asthma, uncomplicated; Z87.891 Personal history of nicotine dependence; Z79.4 Long term (current) use of insulin; Z79.82 Long term (current) use of aspirin; Z88.1 Allergy status to other antibiotic agents
CPT/HCPCS: 36415; 71045-TC-FY; 76705-TC; 80053; 82272; 83735; 83880; 84100; 84443; 84484; 85025; 93005; 93010; 93017; 93018; 93306-TC; 99285-25; G0378; J0131

== ENCOUNTER 2019-04-11 18:25 | Emergency (ER) | payer BC ==
[2019-04-11 18:39] VITALS: BMI 41.1
--- NOTE | 2019-04-11 18:40 | PDOC ---
Rapid Medical Evaluation Chief Complaint: Pain Time Seen by Provider: 04/11/19 18:37 Medical Evaluation: Allergies Allergy/AdvReac Type Severity Reaction Status Date / Time ciprofloxacin HCl Allergy Severe Verified 04/11/19 18:35 [From Cipro] 04/11/19 18:37 Pt presents to the ER for LLQ pain for 2 days. Hx of diverticulitis. Has small BM today with some relief of pain Exam: LLQ tendnerness Orders: labs, IV Pt to proceed to the ER for further evaluation Discharge Disposition - Diagnosis Abdominal pain Qualifiers: Abdominal location: left lower quadrant Qualified Code(s): R10.32 - Left lower quadrant pain - Referrals Referrals: Angel Zuniga MD [Primary Care Provider] - - Patient Instructions - Post Discharge Activity
[2019-04-11 19:01] LABS: BASO % 0.9 % (0-2.0); EOS % 4.1 % (0-4.5); HEMATOCRIT 42.9 % (32.4-45.2); HEMOGLOBIN 14.1 GM/dL (10.7-15.3); LYMPH % 33.3 % (8-40); MCH 27.5 pg (25.7-33.7); MCHC 32.8 g/dl (32.0-36.0); MEAN CELL VOLUME 83.8 fl (80-96); MEAN PLT VOLUME 8.4 fl (7.5-11.1); MONO % 5.9 % (3.8-10.2); NEUT % 55.8 % (42.8-82.8); PLATELET COUNT 215 K/MM3 (134-434); RBC 5.12 M/mm3 (3.60-5.2); RDW 15.4 % (11.6-15.6); WHITE BLOOD COUNT 8.8 K/mm3 (4.0-10.0)
--- NOTE | 2019-04-11 19:13 | PDOC ---
History of Present Illness - General Chief Complaint: Pain Stated Complaint: RIGHT SIDE PAIN Time Seen by Provider: 04/11/19 18:37 - History of Present Illness Initial Comments: 04/11/19 19:12 CHIEF COMPLAINT: LLQ pain HISTORY OF PRESENT ILLNESS: 63 yo F with hx of diverticulitis presents to ED with LLQ pain. Patient reports having difficulty moving bowels for the past few days and that she feels constipated. Denies any fever, N/V/D. No recent travel or sick contacts. PAST MEDICAL HISTORY: Denies past medical history FAMILY HISTORY: Denies SOCIAL HISTORY: Denies tobacco, alcohol, illicit drug use. SURGICAL HISTORY: Denies ALLERGIES: cipro REVIEW OF SYSTEMS General/Constitutional: Denies fever or chills. Denies weakness, weight change. HEENT: Denies change in vision. Denies ear pain or discharge. Denies sore throat. Cardiovascular: Denies chest pain or shortness of breath. Respiratory: Denies cough, wheezing, or hemoptysis. Gastrointestinal: Pain and constipation to LLQ x 3 days . Denies nausea, vomiting, diarrhea. Denies rectal bleeding. Genitourinary: Denies dysuria, frequency, or change in urination. Musculoskeletal: Denies joint or muscle swelling or pain. Denies neck or back pain. Skin and breasts: Denies rash or easy bruising. Neurologic: Denies headache, vertigo, loss of consciousness, or loss of sensation. Psychiatric: Denies depression or anxiety. Endocrine: Denies increased thirst. Denies abnormal weight change. Hematologic/Lymphatic: Denies anemia, easy bleeding, or history of blood clots. Allergic/Immunologic: Denies hives or skin allergy. Denies latex allergy. PHYSICAL EXAM General Appearance: Well-appearing, appropriately dressed. No apparent distress , no intoxication. HEENT: EOMI, PERRLA, normal ENT inspection, normal voice, TMs normal, pharynx normal. No conjunctival pallor. No photophobia, scleral icterus. Neck: Supple. Trachea midline. No tenderness, rigidity, carotid bruit, stridor , lymphadenopathy, or thyromegaly. Respiratory/Chest: Lungs CTAB. No shortness of breath, chest tenderness, respiratory distress, accessory muscle use. No crackles, rales, rhonchi, stridor , wheezing, dullness Cardiovascular: RRR. S1, S2. No JVD, murmur, bradycardia, tachycardia. Vascular Pulses: Dorsalis-Pedis (R): 2+, Dorsalis-Pedis (L): 2+ Gastrointestinal/Abdominal: Normal bowel sounds. Abdomen soft, non-distended. No tenderness or rebound tenderness. No organomegaly, pulsatile mass, guarding , hernia, hepatomegaly, splenomegaly. Lymphatic: No adenopathy, tenderness. Musculoskeletal/Extremities: Normal inspection. FROM of all extremities, normal capillary refill. Pelvis Stable. No CVA tenderness. No tenderness to extremities, pedal edema, swelling, erythema or deformity. Integumentary: Appropriate color, dry, warm. 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 Fully oriented, alert. Appropriate mood/affect. Motor strength 5/5. No appreciable EOM palsy, facial droop or sensory deficit. 04/11/19 22:26 Past History - Past Medical History Allergies/Adverse Reactions: Allergies Allergy/AdvReac Type Severity Reaction Status Date / Time ciprofloxacin HCl Allergy Severe Verified 04/11/19 18:35 [From Cipro] Home Medications: Ambulatory Orders Aspirin [ASA -] 81 mg PO DAILY 02/09/16 Folic Acid 1 mg PO DAILY 02/09/16 Levothyroxine [Synthroid -] 50 mcg PO DAILY 02/09/16 Dicyclomine HCl [Bentyl -] 20 mg PO Q6H PRN 11/30/18 Empagliflozin [Jardiance] 10 mg PO DAILY 11/30/18 Famotidine [Pepcid] 40 mg PO DAILY 11/30/18 Insulin Lispro Protamin/Lispro [Humalog Mix 50-50 Kwikpen] 35 unit SQ ASDIR 05/11 Linaclotide [Linzess] 145 mcg PO DAILY 11/30/18 Losartan Potassium [Cozaar -] 25 mg PO DAILY 11/30/18 Dicyclomine HCl [Bentyl -] 20 mg PO ONCE 03/15/19 Dicyclomine HCl [Bentyl -] 10 mg PO Q6H PRN #28 capsule 04/11/19 Lactulose (Oral Use) [Cephulac -] 20 gm PO TID PRN #1 bottle 04/11/19 Anemia: No Asthma: No Cancer: No Cardiac Disorders: No CVA: No COPD: No CHF: No Diabetes: Yes GI Disorders: Yes (Gastroparesis, gastritis, diverticulosis) Disorders: Yes (endometriosis) HTN: Yes Hypercholesterolemia: Yes Liver Disease: No Seizures: No Thyroid Disease: Yes (Hypothyroid) - Surgical History Abdominal Surgery: Yes (incisional hernia repair, lap bernice) Appendectomy: No Cardiac Surgery: No Cholecystectomy: Yes Lung Surgery: No Neurologic Surgery: No Orthopedic Surgery: No (lt knee arthroscopy) - Family Disease History Family Disease History: Diabetes: Mother (hypothyroidism), Sister, [place]: Father ( lung cancer), Other: Mother - Immunization History Immunization Up to Date: Yes - Suicide/Smoking/Psychosocial Hx Smoking Status: No Smoking History: Never smoked Have you smoked in the past 12 months: No Number of Cigarettes Smoked Daily: 20 If you are a former smoker, when did you quit?: many years ago Information on smoking cessation initiated: No Hx Alcohol Use: No Drug/Substance Use Hx: No Hx Substance Use Treatment: No *Physical Exam - Vital Signs Last Vital Signs Temp Pulse Resp BP Pulse Ox 98.2 F 74 16 129/80 97 04/11/19 18:35 04/11/19 18:35 04/11/19 18:35 04/11/19 18:35 04/11/19 18:35 ED Treatment Course - LABORATORY CBC & Chemistry Diagram: 04/11/19 18:45 04/11/19 18:45 - ADDITIONAL ORDERS Additional order review: 04/11/19 18:45 RBC 5.12 MCV 83.8 MCHC 32.8 RDW 15.4 MPV 8.4 Neutrophils % 55.8 Lymphocytes % 33.3 Monocytes % 5.9 Eosinophils % 4.1 Basophils % 0.9 Medical Decision Making - Medical Decision Making 04/13/19 00:32 63 yo F w hx of dtix presents to ED with LLQ pain and constipation. Xray shows fecal retention. Laxatives, f/u with PCP Advised patient to take medication as prescribed and follow up with PCP this week. Advised patient of signs and symptoms for return to ED. Patient verbalized understanding and agrees to plan. *DC/Admit/Observation/Transfer Diagnosis at time of Disposition: Constipation Qualifiers: Constipation type: unspecified constipation type Qualified Code(s): K59.00 - Constipation, unspecified - Discharge Dispostion Disposition: HOME Condition at time of disposition: Stable Decision to Admit order: No - Prescriptions Prescriptions: Dicyclomine HCl [Bentyl -] 10 mg PO Q6H PRN #28 capsule PRN Reason: abdominal pain Lactulose (Oral Use) [Cephulac -] 20 gm PO TID PRN #1 bottle PRN Reason: Constipation - Referrals Referrals: Angel Zuniga MD [Primary Care Provider] - - Patient Instructions Printed Discharge Instructions: DI for Constipation - Post Discharge Activity
[2019-04-11 19:27] LABS: ALBUMIN 3.5 g/dl (3.4-5.0); BILIRUBIN,TOTAL 0.5 mg/dL (0.2-1); CALCIUM 9.8 mg/dL (8.5-10.1); CREATININE 0.8 mg/dL (0.55-1.3); POTASSIUM 4.3 mmol/L (3.5-5.1); TOT PROT 7.3 g/dl (6.4-8.2)
[2019-04-11 19:42] LABS: INR 0.96 (0.83-1.09); PROTHROMBIN TIME (PATIENT) 11.3 SEC (9.7-13.0)
[2019-04-11 20:38] LABS: PH,URINE 6.5 (5.0-8.0); URINE APPEARANCE CLEAR; URINE BILIRUBIN NEGATIVE (NEGATIVE); URINE COLOR YELLOW; URINE GLUCOSE (UA) 3+ (NEGATIVE); URINE KETONE NEGATIVE (NEGATIVE); URINE LEUK ESTERASE NEGATIVE (NEGATIVE); URINE NITRITE NEGATIVE (NEGATIVE); URINE PROTEIN NEGATIVE (NEGATIVE); URINE UROBILINOGEN 0.2 mg/dL (0.2-1.0)
[2019-04-11] MEDS ORDERED: DICYCLOMINE HCL 20 MG TABLET PO ONE (20:38)
[2019-04-11] MEDS ORDERED: SIMETHICONE 80 MG TAB.CHEW (FP) PO ONE (20:38)
[2019-04-11] MEDS ORDERED: DICYCLOMINE HCL 10 MG CAPSULE ONE (20:42)
[2019-04-11 21:43] VITALS: TEMP 97.3
[2019-04-11 23:17] VITALS: BP 115/42; PULSE 77
== END 2019-04-11 23:17 | disposition home or self-care (01) ==
LOC: JER 18:25
DX: K59.00 Constipation, unspecified (principal); R10.32 Left lower quadrant pain; I10 Essential (primary) hypertension; E78.00 Pure hypercholesterolemia, unspecified; E11.9 Type 2 diabetes mellitus without complications; E03.9 Hypothyroidism, unspecified; Z79.4 Long term (current) use of insulin
CPT/HCPCS: 36415; 74019-TC-FY; 80053; 81003; 85025; 85610; 87086; 99283-25